=== PATIENT | female | born 1930 | race Caucasian/White ===

== ENCOUNTER 2018-12-25 13:22 | Inpatient (IN) | payer MEDICAID ==
[~2018-12-25] VITALS: Ht 132.1 cm; Wt 47.6 kg
[2018-12-25 13:37] VITALS: BP 143/66
--- NOTE | 2018-12-25 13:46 | NUR ---
88/F BIB FAMILY C/O BACK PAIN 10 X 4 DAYS, NO TRAUMA OR INJURY .AAOX4.PATIENT POSITIONED FOR COMFORT; HOB ELEVATED; BEDRAILS UP X1; BED DOWN. ER MD MADE AWARE OF PT STATUS.
--- NOTE | 2018-12-25 13:46 | NUR ---
88/F BIB FAMILY C/O LOWER BACK PAIN 06/11 WITH SOB X 4 DAYS, NO TRAUMA OR INJURY .AAOX4.PATIENT POSITIONED FOR COMFORT; HOB ELEVATED; BEDRAILS UP X1; BED DOWN. ER MD MADE AWARE OF PT STATUS.
--- NOTE | 2018-12-25 14:38 | NUR ---
X RAY AT BEDSIDE.
--- NOTE | 2018-12-25 14:43 | NUR ---
PT AMB WITH CANE & FAMILY TO REST ROOM.
[2018-12-25 15:18] LABS: BASOPHILS % (AUTO) 0.5 % (0.0-2.0); EOSINOPHILS # (AUTO) 0.3 K/uL (0-0.4); EOSINOPHILS % (AUTO) 3.4 % (0.0-4.0); HEMATOCRIT 38.8 % (36-48); HEMOGLOBIN 13.1 g/dL (12.0-16.0); LYMPHOCYTES # (AUTO) 1.9 K/uL (2.5-16.5); LYMPHOCYTES % (AUTO) 24.2 % (20.5-51.1); MEAN CORPUSCULAR HEMOGLOBIN 32 pg (27-31); MEAN CORPUSCULAR HGB CONC 34 g/dL (33-37); MEAN CORPUSCULAR VOLUME 94.4 fL (80-94); MONOCYTES # (AUTO) 0.7 K/uL (0.8-1.0); MONOCYTES % (AUTO) 8.2 % (1.7-9.3); NEUTROPHILS # (AUTO) 5.1 K/uL (1.8-7.7); NEUTROPHILS % (AUTO) 63.7 % (42.2-75.2); PLATELET COUNT (AUTO) 139 K/uL (140-450); RED BLOOD CELL COUNT(AUTO) 4.11 MIL/uL (4.20-5.40); RED CELL DISTRIBUTION WIDTH 13.5 % (11.6-13.7)
[2018-12-25 15:24] LABS: APPEARANCE,URINE CLEAR (CLEAR); BILIRUBIN,URINE NEGATIVE (NEGATIVE); BLOOD, URINE 1+ (NEGATIVE); COLOR,URINE YELLOW (YELLOW); LEUKOCYTE ESTERASE ,URINE TRACE (NEGATIVE); NITRITE, URINE NEGATIVE (NEGATIVE); UGLUCOSE NEGATIVE (NEGATIVE)
[2018-12-25 15:29] LABS: ANION GAP 13.7 (8-16); CARBON DIOXIDE 24.3 mmol/L (21-32); CHLORIDE 106 mmol/L (98-107); CREATININE 0.7 mg/dL (0.6-1.3); GLUCOSE 89 mg/dL (74-106); SODIUM SERUM 140 mmol/L (136-145); UREA NITROGEN, BLOOD 14 mg/dL (7-18)
[2018-12-25 15:35] LABS: ALBUMIN 3.6 g/dL (3.4-5.0); ASPARTATE AMINOTRANSFERASE 21 U/L (15-37); TOTAL BILIRUBIN 0.6 mg/dL (0.0-1.0)
[2018-12-25 15:37] LABS: RBC,URINE 0-5 /HPF (0-5); WBC,URINE 0-5 /HPF (0-5)
[2018-12-25] MEDS ORDERED: ONDANSETRON 4 MG/2 ML VIAL IM/IVP PRN (16:40)
[2018-12-25] MEDS ORDERED: MORPHINE SULFATE 2 MG/ML SYR IVP PRN (16:40)
[2018-12-25] MEDS ORDERED: DOCUSATE SODIUM 100 MG GELCAP PO PRN (16:40)
[2018-12-25 16:48] LABS: AMYLASE 38 U/L (25-115); LIPASE 121 U/L (73-393)
[2018-12-25] MEDS ORDERED: MEDICATION REC. PHARMACY CONS. 1 EA MISC MC PRN (16:50)
[2018-12-25] MEDS ORDERED: MELATONIN 3 MG TAB PO PRN (16:50)
[2018-12-25 17:09] LABS: PROTHROMBIN TIME 10.3 secs (10.8-13.4)
--- NOTE | 2018-12-25 17:11 | NUR ---
Patient will be admitted to care of [facility]. Admited to MS 121B. Will go to room. Belongings list completed. Report to XANDER LEE.
[2018-12-25 17:14] LABS: CHOL/HDL RATIO 3.2 (1-4.5); MAGNESIUM 2.2 mg/dL (1.8-2.4); PHOSPHORUS 3.3 mg/dL (2.5-4.9); THYROID STIMULATING HORMONE 4.21 uIU/mL (0.34-3.74)
[2018-12-25 17:15] VITALS: BP 131/69
--- NOTE | 2018-12-25 17:15 | NUR ---
RECEIVED REPORT FROM ED RN. PT IN STABLE CONDITION. AMBULATORY WITH SOME GEN WEAKNESS. USES CANE. SKIN INTACT. LUNGS CTA. NO C/O SOB OR PAIN NOW WHEN NOT MOVING. EXPLAINED POC. DAUGHTER AT BEDSIDE TO TRANSLATE-PT PREFERENCE. ALL SAFETY PRECAUTIONS IN PLACE, WILL CONTINUE TO MONITOR.
[2018-12-25] MEDS: NACL 0.9% 1,000 ML IV SCH (17:24)
[2018-12-25] MEDS ORDERED: ALBUTEROL SULFATE/IPRATROPIU 3 ML SOL IH PRN (17:40)
[2018-12-25] MEDS ORDERED: MECLIZINE 25 MG TAB PO PRN (17:55)
[2018-12-25] MEDS ORDERED: LACTOBACILLUS RHAMNOSUS GG 1 EACH CAP PO SCH (18:00)
[2018-12-25] MEDS ORDERED: LISINOPRIL 5 MG TAB PO SCH (18:00)
[2018-12-25] MEDS ORDERED: MENTHOL/METHYL 10%-15% 114 GM TUBE TP PRN (18:00)
--- NOTE | 2018-12-25 18:45 | NUR ---
ASKED HOUSE SUP TO BRING K PAD AND SCD.
[2018-12-25] MEDS: ALBUTEROL SULFATE/IPRATROPIU 3 ML SOL IH SCH (19:08)
--- NOTE | 2018-12-25 19:10 | NUR ---
ENDORSED POC TO MOVERS RN. PT IN STABLE CONDITION.
--- NOTE | 2018-12-25 19:15 | NUR ---
RECEIVED PT ON BED, AAOX4, [place]ER SPEAKING, VITAL SIGNS STABLE, COMPLAINING OF BACK PAIN, WILL MEDICATE PRN, NO SOB NOTED, IVF INFUSING WELL, SAFETY MEASURES IN PLACE, CALL LIGHT WITHIN REACH.
[2018-12-25 20:00] VITALS: BP_SYST 131; BP_SYST 134; BP_DIAS 56; BP_DIAS 58
[2018-12-25] MEDS: ACETAMINOPHEN 325 MG TAB PO PRN (20:02)
--- NOTE | 2018-12-25 21:10 | NUR ---
PT VOIDED VOIDED FREELY PER BEDPAN, PT CAN REPOSITIONED SELF, ALL NEEDS ATTENDED.
[2018-12-26] VITALS: BP 116/48
--- NOTE | 2018-12-26 | NUR ---
PT SLEEPING, EASILY AROUSABLE, VITAL SIGNS STABLE, DENIES ANY PAIN, WITH HEATING PAD TO BACK, IVF INFUSING WELL, CONTINUE TO MONITOR CLOSELY.
--- NOTE | 2018-12-26 03:00 | NUR ---
PT SLEEPING, NO SIGNS OF DISTRESS, IVF INFUSING WELL, MONITORED CLOSELY.
--- NOTE | 2018-12-26 05:20 | NUR ---
PT SLEEPING, EASILY AROUSABLE, DENIES ANY PAIN, SCD APPLIED TO BLE, IVF INFUSING WELL, MONITORED CLOSELY, SIDE RAILS UP X2 AND BED ALARM ON.
[2018-12-26 06:37] LABS: ANION GAP 11.2 (8-16); CARBON DIOXIDE 26.8 mmol/L (21-32); CHLORIDE 110 mmol/L (98-107); CREATININE 0.8 mg/dL (0.6-1.3); GLUCOSE 80 mg/dL (74-106); SODIUM SERUM 144 mmol/L (136-145); UREA NITROGEN, BLOOD 13 mg/dL (7-18)
[2018-12-26 06:38] LABS: CHOL/HDL RATIO 2.8 (1-4.5)
--- NOTE | 2018-12-26 07:08 | NUR ---
PT AWAKE, NO SIGNS OF PAIN, REPORT GIVEN TO JESUS SANDY FOR CONTINUITY OF CARE.
--- NOTE | 2018-12-26 07:10 | NUR ---
RECEIVED BEDSIDE REPORT FROM LEAN SIX SIGMA BLACK BELT NURSE FOR CONTINUITY OF CARE. PATIENT IS AOX4, SPEAKING SLOVENIAN ONLY. ABLE TO MAKE NEEDS KNOWN AND FOLLOWS COMMAND. DENIES PAIN AND SOB. RESPIRATION EVEN AND UNLABORED. ON RA. NO SIGNS OF DISTRESS NOTED. IV ON LAC 20G, PATENT AND INTACT, INFUSING PER MD ORDER. SKIN INTACT AND CLEAN. PATIENT IS ON FALL RISK, FALL RISK PROTOCOL INITIALED. DISCUSSED PLAN OF CARE WITH PATIENT AND PATIENT VERBALIZED "SI". INSTRUCTED PATIENT TO USE THE CALL LIGHT FOR ANY ASSISTANCE AND PATIENT WAS AWARE. BED IN LOW POSITION AND CALL LIGHT WITHIN REACH.
[2018-12-26] MEDS: ALBUTEROL SULFATE/IPRATROPIU 3 ML SOL IH SCH ×3 (07:15→21:11)
[2018-12-26 07:56] LABS: BASOPHILS # (AUTO) 0.1 K/uL (0.00-0.22); BASOPHILS % (AUTO) 1.1 % (0.0-2.0); EOSINOPHILS # (AUTO) 0.4 K/uL (0-0.4); EOSINOPHILS % (AUTO) 7.5 % (0.0-4.0); HEMATOCRIT 36.5 % (36-48); HEMOGLOBIN 12.2 g/dL (12.0-16.0); LYMPHOCYTES # (AUTO) 1.6 K/uL (2.5-16.5); LYMPHOCYTES % (AUTO) 33.8 % (20.5-51.1); MEAN CORPUSCULAR HEMOGLOBIN 32 pg (27-31); MEAN CORPUSCULAR HGB CONC 33 g/dL (33-37); MEAN CORPUSCULAR VOLUME 94.8 fL (80-94); MONOCYTES # (AUTO) 0.5 K/uL (0.8-1.0); MONOCYTES % (AUTO) 10.2 % (1.7-9.3); NEUTROPHILS # (AUTO) 2.3 K/uL (1.8-7.7); NEUTROPHILS % (AUTO) 47.4 % (42.2-75.2); PLATELET COUNT (AUTO) 126 K/uL (140-450); RED BLOOD CELL COUNT(AUTO) 3.85 MIL/uL (4.20-5.40); RED CELL DISTRIBUTION WIDTH 13.6 % (11.6-13.7); WHITE BLOOD COUNT (AUTO) 4.9 K/uL (4.8-10.8)
[2018-12-26 08:00] VITALS: BP 128/58
--- NOTE | 2018-12-26 08:29 | NUR ---
PATIENT HAS BEEN SCREENED AND CATEGORIZED MODERATE NUTRITION RISK. PATIENT WILL BE SEEN WITHIN 3-5 DAYS OF ADMISSION. 12/28/18[address]
[2018-12-26] MEDS ORDERED: FUROSEMIDE 20 MG/2 ML VIAL IVP SCH (08:40)
[2018-12-26] MEDS ORDERED: ASPIRIN 81 MG TAB.CHEW PO SCH (09:00)
[2018-12-26] MEDS: BACLOFEN 10 MG TAB PO SCH ×3 (09:20→17:20)
[2018-12-26] MEDS: LACTOBACILLUS RHAMNOSUS GG 1 EACH CAP PO SCH (09:21)
[2018-12-26] MEDS: LISINOPRIL 5 MG TAB PO SCH (09:21)
[2018-12-26] MEDS: LORATADINE 10 MG TAB PO SCH (09:21)
--- NOTE | 2018-12-26 09:26 | NUR ---
ADMINISTERED MEDS PER MD ORDER, PATIENT TOLERATED WELL. HOLD HEPARIN DUE TO LOW PLATELET LAB 126 FROM AM LAB. SAFETY MEASURES IN PLACE. HEATING PAD IN PLACE. SEQUENTIAL COMPRESSION SOCKS IN PLACE. BED IN LOW POSITION AND CALL LIGHT WITHIN REACH. INSTRUCTED PATIENT TO USE CALL LIGHT FOR ANY ASSISTANCE AND PATIENT WAS AWARE.
--- NOTE | 2018-12-26 09:29 | NUR ---
PHYSICAL THERAPIST SHAGUFTA IS WITH PATIENT AT THIS TIME. NO SIGNS OF DISTRESS NOTED.
[2018-12-26] MEDS: HYDROcodone/APAP 5/325 MG 1 TAB TAB PO PRN ×2 (11:24→20:16)
--- NOTE | 2018-12-26 11:25 | NUR ---
PATIENT C/O OF BACK PAIN 02/09. ADMINISTERED PRN PAIN MED, PATIENT TOLERATED WELL. HEATING PAD APPLIED ON HER BACK. SAFETY MEASURES IN PLACE.
[2018-12-26] MEDS ORDERED: CALCIUM CARB/VIT-D 500 MG/200 IU 1 TAB PO SCH (11:34)
[2018-12-26] MEDS ORDERED: DOCUSATE SODIUM 100 MG GELCAP PO SCH (11:38)
--- NOTE | 2018-12-26 11:46 | NUR ---
LOAN DOCUMENTS CLOSER JORDEN IS AT BEDSIDE AND DOING ECHOCARDIOGRAM AT THIS TIME. NO SIGNS OF DISTRESS NOTED.
--- NOTE | 2018-12-26 13:02 | NUR ---
PATIENT IS SITTING UP ON BED WATCHING TV AND EATING LUNCH. DENIES PAIN AND SOB. NO SIGNS OF DISTRESS NOTED. SAFETY MEASURES IN PLACE.
--- NOTE | 2018-12-26 15:01 | NUR ---
PATIENT IS RESTING ON BED AND TALKING TO SON MARIZOL BLACK AT BEDSIDE. NO SIGNS OF DISTRESS NOTED. SAFETY MEASURES IN PLACE.
[2018-12-26 16:00] VITALS: BP 105/54
--- NOTE | 2018-12-26 16:11 | NUR ---
S.T. BEDSIDE SWALLOW EVAL COMPLETED See report. Pt presents w/ adequate oropharyngeal swallow function. No overt s/s aspiration observed across textures. Recommend: 1) Continue regular diet, thin liquids. P.O. meds as tolerated. 2) Defer to medicine team re: dietary restrictions. No further S.T. tx indicated at this time. [facility]. D/w pt, family member at bedside and JESUS Hernandez results/recommendations. Time [id number]
[2018-12-26] MEDS: NACL 0.9% 1,000 ML IV SCH (16:37)
[2018-12-26] MEDS ORDERED: hydrOXYzine HCL 10 MG TAB PO PRN (16:40)
[2018-12-26] MEDS ORDERED: diphenhydrAMINE 2% 30 GM TUBE TP PRN (16:45)
--- NOTE | 2018-12-26 17:22 | NUR ---
PATIENT IS SITTING ON BED AND WATCHING TV. DENIES PAIN AND SOB. NO SIGNS OF DISTRESS NOTED. SAFETY MEASURES IN PLACE.
--- NOTE | 2018-12-26 19:28 | NUR ---
ENDORSED PATIENT AT BEDSIDE TO FURNACE UTILITY OPERATOR FOR CONTINUITY OF CARE. PATIENT IS IN A STABLE CONDITION.
--- NOTE | 2018-12-26 19:29 | NUR ---
RECEIVED PT ON BED, SLEEPING, EASILY AROUSABLE, AAOX4, KAZAKH SPEAKING, VITAL SIGNS STABLE, COMPLAINING OF BACK PAIN, WILL MEDICATE PRN, NO SOB NOTED, IVF INFUSING WELL, SAFETY MEASURES IN PLACE, SIDE RAILS UP X2 AND BED ALARM ON, CALL LIGHT WITHIN REACH.
--- NOTE | 2018-12-26 20:20 | NUR ---
MEDICATED FOR BACK PAIN PRN WITH NORCO, DUE ROCEPHIN IVPB ADMINISTERED, PLATELET LOW-126, PER DR ABDIAZIZ IRVING TO HOLD HEPARIN AT THIS TIME, MONITORED CLOSELY.
--- NOTE | 2018-12-26 20:55 | NUR ---
DR Tamera GARCIA HERE FOR CARDIAC CONSULT, SEEN AND TALKED TO PT.
--- NOTE | 2018-12-26 21:21 | NUR ---
RECEIVED PATIENT ON ROOM AIR, PULSE OX SAT 95%. SCHEDULED BREATHING TREATMENT ADMINISTERED. TOLERATED TX WELL. NO ADVERSE SIDE EFFECTS. NO RESPIRATORY DISTRESS NOTED AT THIS TIME. WILL CONTINUE TO MONITOR.
--- NOTE | 2018-12-26 23:55 | NUR ---
PT SLEEPING, NO SIGNS OF DISTRESS, BEDSIDE REPORT GIVEN TO RN BETH FOR CONTINUITY OF CARE.
[2018-12-27] VITALS: BP 110/58
--- NOTE | 2018-12-27 | NUR ---
RECEIVED REPORT FROM SENIA LEE. PATIENT CONDITION STABLE. RESPIRATION EVEN UNLABORED ON ROOM AIR. SKIN IS WARM AND DRY. IV PATENT AND INTACT. NO DISTRESS NOTED. WILL CONTINUE TO MONITOR.
--- NOTE | 2018-12-27 02:00 | NUR ---
CHECKED PATIENT. PATIENT SLEEPING RESPIRATION EVEN UNLABORED ON ROOM AIR. NO DISTRESS NOTED. WILL CONTINUE TO MONITOR
[2018-12-27] MEDS: NACL 0.9% 1,000 ML IV SCH (02:41)
--- NOTE | 2018-12-27 04:00 | NUR ---
HELP PATIENT AMBULATES TO THE BATHROOM. NO DISTRESS NOTED. WILL CONTINUE TO MONITOR
[2018-12-27] MEDS: ALBUTEROL SULFATE/IPRATROPIU 3 ML SOL IH SCH ×3 (06:45→19:40)
--- NOTE | 2018-12-27 07:25 | NUR ---
ENDORSED PATIENT TO DAY SHIFT NURSE. PATIENT CONDITION STABLE
--- NOTE | 2018-12-27 07:27 | NUR ---
ECEIVED BEDSIDE REPORT FROM FLATWORK FEEDER NURSE FOR CONTINUITY OF CARE. PATIENT IS AWAKE AND RESTING ON BED AT THIS TIME. PATIENT IS AOX4, SPEAKING SRI LANKAN ONLY. ABLE TO MAKE NEEDS KNOWN AND FOLLOWS COMMAND. DENIES PAIN AND SOB. RESPIRATION EVEN AND UNLABORED. ON RA. NO SIGNS OF DISTRESS NOTED. IV ON LAC 20G, PATENT AND INTACT, INFUSING PER MD ORDER. SKIN INTACT AND CLEAN. PATIENT IS ON FALL RISK, FALL RISK PROTOCOL INITIALED. DISCUSSED PLAN OF CARE WITH PATIENT AND PATIENT VERBALIZED OK. HEATING PAD IN PLACE. INSTRUCTED PATIENT TO USE THE CALL LIGHT FOR ANY ASSISTANCE AND PATIENT WAS AWARE. BED IN LOW POSITION AND CALL LIGHT WITHIN REACH. Addendum: 12/27/18 at 0850 by Anni Cantu RN RECEIVED
[2018-12-27 08:00] VITALS: BP 137/61
[2018-12-27 08:09] LABS: BASOPHILS % (AUTO) 0.7 % (0.0-2.0); EOSINOPHILS # (AUTO) 0.3 K/uL (0-0.4); EOSINOPHILS % (AUTO) 5.4 % (0.0-4.0); HEMATOCRIT 36.1 % (36-48); HEMOGLOBIN 12.9 g/dL (12.0-16.0); LYMPHOCYTES # (AUTO) 1.4 K/uL (2.5-16.5); LYMPHOCYTES % (AUTO) 24.4 % (20.5-51.1); MEAN CORPUSCULAR HEMOGLOBIN 36 pg (27-31); MEAN CORPUSCULAR HGB CONC 36 g/dL (33-37); MEAN CORPUSCULAR VOLUME 101.5 fL (80-94); MONOCYTES # (AUTO) 0.5 K/uL (0.8-1.0); MONOCYTES % (AUTO) 8.4 % (1.7-9.3); NEUTROPHILS # (AUTO) 3.4 K/uL (1.8-7.7); NEUTROPHILS % (AUTO) 61.1 % (42.2-75.2); PLATELET COUNT (AUTO) 120 K/uL (140-450); RED BLOOD CELL COUNT(AUTO) 3.56 MIL/uL (4.20-5.40); RED CELL DISTRIBUTION WIDTH 13.4 % (11.6-13.7); WHITE BLOOD COUNT (AUTO) 5.6 K/uL (4.8-10.8)
[2018-12-27 08:13] LABS: ANION GAP 11.3 (8-16); CHLORIDE 108 mmol/L (98-107); CREATININE 0.7 mg/dL (0.6-1.3); GLUCOSE 75 mg/dL (74-106); POTASSIUM 4.3 mmol/L (3.5-5.1); SODIUM SERUM 142 mmol/L (136-145); UREA NITROGEN, BLOOD 12 mg/dL (7-18)
[2018-12-27] MEDS ORDERED: CALCIUM CARB/VIT-D 500 MG/200 IU 1 TAB PO SCH (09:00)
[2018-12-27] MEDS: CALCIUM CARB/VIT-D 500 MG/200 IU 1 TAB PO SCH (09:02)
[2018-12-27] MEDS: LACTOBACILLUS RHAMNOSUS GG 1 EACH CAP PO SCH (09:02)
[2018-12-27] MEDS: LISINOPRIL 5 MG TAB PO SCH (09:02)
[2018-12-27] MEDS: BACLOFEN 10 MG TAB PO SCH ×3 (09:02→17:24)
[2018-12-27] MEDS: LORATADINE 10 MG TAB PO SCH (09:03)
[2018-12-27] MEDS: DOCUSATE SODIUM 100 MG GELCAP PO SCH (09:03)
--- NOTE | 2018-12-27 09:08 | NUR ---
ADMINISTERED MEDS PER MD ORDER, PATIENT TOLERATED WELL. HOLD HEPARIN DUE TO LOW PLT LAB VALUE 120 FROM AM LAB. PATIENT IS SITTING UP ON BED AND WATCHING TV. DENIES PAIN AND SOB. NO SIGNS OF DISTRESS NOTED. SAFETY MEASURES IN PLACE. INSTRUCTED PATIENT TO USE THE CALL LIGHT FOR ANY ASSISTANCE AND PATIENT WAS AWARE.
--- NOTE | 2018-12-27 11:05 | NUR ---
PATIENT IS TALKING TO SON MARIZOL IS AT BEDSIDE. NO SIGNS OF DISTRESS NOTED. INSTRUCTED PATIENT TO USE THE CALL LIGHT FOR ANY ASSISTANCE AND PATIENT WAS AWARE. SAFETY MEASURES IN PLACE.
--- NOTE | 2018-12-27 13:00 | NUR ---
CALLED [facility] FOR [facility] [phone] UNABLE TO LEFT MESSAGE.
--- NOTE | 2018-12-27 13:05 | NUR ---
PATIENT IS SITTING UP ON BED AND GETTING BREATHING TREATMENT. NO SIGNS OF DISTRESS NOTED. HEATING PAD IN PLACE. SAFETY MEASURES IN PLACE. BED IN LOW POSITION AND CALL LIGHT WITHIN REACH.
[2018-12-27] MEDS: ACETAMINOPHEN 325 MG TAB PO PRN (13:17)
--- NOTE | 2018-12-27 13:19 | NUR ---
COMPLAINED OF BACK PAIN 3/, MEDICATED WITH PRN PAIN MED. PATIENT IS RESTING ON BED AND WATCHING TV AT THIS TIME. HEATING PAD IN PLACE. INSTRUCTED PATIENT TO USE THE CALL LIGHT FOR ANY ASSISTANCE AND PATIENT WAS AWARE. BED IN LOW POSITION AND CALL LIGHT WITHIN REACH.
--- NOTE | 2018-12-27 15:00 | NUR ---
CALLED [facility] [phone] SPOKE WITH KATHERINE FOR SNF PLACEMENT ,PER KATHERINE WILL CHECK THE CONTRACTED SNF AROUND HIS HOME ADDRESS AND WILL CALL BACK
--- NOTE | 2018-12-27 15:10 | NUR ---
PATIENT IS TALKING TO SON MARIZOL AT BEDSIDE. NO SIGNS OF DISTRESS NOTED. SAFETY MEASURES IN PLACE.
--- NOTE | 2018-12-27 15:45 | NUR ---
PATIENT'S DAUGHTER WILLARD IS AT BEDSIDE. PATIENT IS TALKING TO WILLARD. NO SIGNS OF DISTRESS NOTED.
[2018-12-27 16:00] VITALS: BP 116/54
--- NOTE | 2018-12-27 17:26 | NUR ---
ADMINISTERED MED PER MD ORDER, PATIENT TOLERATED WELL. NO SIGNS OF DISTRESS NOTED. INSTRUCTED PATIENT TO USE THE CALL LIGHT FOR ANY ASSISTANCE AND PATIENT WAS AWARE. SAFETY MEASURES IN PLACE.
--- NOTE | 2018-12-27 17:41 | NUR ---
I RECEIVED A CALL FROM BRIAN FROM [place] [facility] REGARDING SNF PLACEMENT PER BRIAN WE CAN TRY [facility] [phone] ,[facility] [phone] AND [facility] [phone] WILL CALL AND FAX ALL THE PAPER
--- NOTE | 2018-12-27 17:41 | NUR ---
FAXED ALL PAPER WORK TO [facility] [phone], [facility] [phone]
--- NOTE | 2018-12-27 18:53 | NUR ---
DR GARCIA IS ASSESSING PATIENT AT THIS TIME. NO SIGNS OF DISTRESS NOTED. SAFETY MEASURES IN PLACE.
--- NOTE | 2018-12-27 19:14 | NUR ---
ENDORSED PATIENT AT BEDSIDE TO POLICE LIAISON NURSE FOR CONTINUITY OF CARE. PATIENT IS IN STABLE CONDITION.
--- NOTE | 2018-12-27 19:15 | NUR ---
REPORT RECEIVED FROM AM NURSE AT BEDSIDE. PT IN STABLE CONDITION. AAOX2. INTRODUCED SELF TO PT. BOARD UPDATED. NO COMPLAINTS OF PAIN. NO SOB. AFEBRILE. PT PRIMARILY TUNISIAN SPEAKING. IV SITE L AC 20G RUNNING NS@20ML/HR PATENT AND INTACT. SKIN WARM, DRY, AND INTACT WITH NO OPEN WOUNDS. PT HAS ORDERS FOR D/C BUT AWAITING SNF PLACEMENT FOR PHYSICAL THERAPY. PT GAIT IMPAIRED. BED LOCKED IN LOW POSITION. CALL JIMENEZ WITHIN REACH. SAFETY PRECAUTIONS IN PLACE. ALL NEEDS MET AT THIS TIME.
--- NOTE | 2018-12-27 19:45 | NUR ---
PT CHUCKS CHANGED.
--- NOTE | 2018-12-27 20:38 | NUR ---
FORREST JUNG AND RUNNING. HEPARIN HELD DUE TO DECREASED PLT COUNT. WILL CONTINUE TO MONITOR.
--- NOTE | 2018-12-27 22:10 | NUR ---
PT SLEEPING COMFORTABLY RIGHT LATERAL. NO S/S OF DISTRESS NOTED. WILL CONTINUE TO MONITOR.
--- NOTE | 2018-12-27 23:50 | NUR ---
PT SLEEPING COMFORTABLY IN BED RIGHT LATERAL. V/S STABLE. NO COMPLAINTS OF PAIN. NO SOB. AFEBRILE. WILL CONTINUE TO MONITOR.
[2018-12-28] VITALS: BP 95/54
--- NOTE | 2018-12-28 01:30 | NUR ---
PT SLEEPING COMFORTABLY IN BED SUPINE. NO S/S OF DISTRESS NOTED. CHEST EXPANSION VISIBLE. WILL CONTINUE TO MONITOR.
--- NOTE | 2018-12-28 03:30 | NUR ---
PT SLEEPING COMFORTABLY IN BED. NO S/S OF DISTRESS NOTED. RESPIRATIONS ARE VISIBLE. WILL CONTINUE TO MONITOR.
--- NOTE | 2018-12-28 05:35 | NUR ---
PT SLEEPING COMFORTABLY. NO S/S OF DISTRESS NOTED. WILL CONTINUE TO MONITOR.
--- NOTE | 2018-12-28 07:24 | NUR ---
RECEIVED REPORT FROM ECHOCARDIOGRAPH TECHNICIAN RN AT BEDSIDE. PATIENT CONDITION STABLE. RESPIRATION EVEN UNLABORED ON ROOM AIR. SKIN IS WARM AND DRY. IV PATENT AND INTACT. NO DISTRESS NOTED. WILL CONTINUE TO MONITOR.
--- NOTE | 2018-12-28 07:30 | NUR ---
REPORT GIVEN TO AM NURSE AT BEDSIDE. PT IN STABLE CONDITION.
[2018-12-28 08:00] VITALS: BP_SYST 133; BP_SYST 138; BP_DIAS 65; BP_DIAS 71
[2018-12-28] MEDS: ALBUTEROL SULFATE/IPRATROPIU 3 ML SOL IH SCH ×3 (08:02→19:55)
[2018-12-28] MEDS: DOCUSATE SODIUM 100 MG GELCAP PO SCH (09:56)
[2018-12-28] MEDS: CALCIUM CARB/VIT-D 500 MG/200 IU 1 TAB PO SCH (09:56)
[2018-12-28] MEDS: LACTOBACILLUS RHAMNOSUS GG 1 EACH CAP PO SCH (09:57)
[2018-12-28] MEDS: BACLOFEN 10 MG TAB PO SCH ×3 (09:57→20:33)
[2018-12-28] MEDS: LISINOPRIL 5 MG TAB PO SCH (09:57)
[2018-12-28] MEDS: LORATADINE 10 MG TAB PO SCH (09:58)
--- NOTE | 2018-12-28 13:18 | NUR ---
CALLED [facility] [phone] PER DECEMBER, ADMISSION WILL REVIEW THE REFERRAL ON SATURDAY, CAN'T ACCEPT TODAY. [facility] [phone] PER JAVI, THEY ARE UNABLE TO ACCEPT THIS PATIENT.
[2018-12-28 16:00] VITALS: BP_SYST 111; BP_SYST 114; BP_DIAS 49; BP_DIAS 51
[2018-12-28] MEDS: HYDROcodone/APAP 5/325 MG 1 TAB TAB PO PRN (16:03)
[2018-12-28] MEDS: NACL 0.9% 1,000 ML IV SCH (16:37)
--- NOTE | 2018-12-28 19:29 | NUR ---
ENDORSED PT TO BOTTLE LINE WORKER FOR CONTINUITY OF CARE. PT IN TABLE CONDITION AT THIS TIME.
--- NOTE | 2018-12-28 19:30 | NUR ---
REPORT RECEIVED FROM AM NURSE AT BEDSIDE. PT IN STABLE CONDITION. AAOX3-4. INTRODUCED SELF TO PT. BOARD UPDATED. NO COMPLAINTS OF PAIN. NO SOB. AFEBRILE. IV SITE L AC 20G RUNNING NS@10ML/HR PATENT AND INTACT. SKIN WARM, DRY, AND INTACT WITH NO OPEN WOUNDS. BED LOCKED IN LOW POSITION. CALL JIMENEZ WITHIN REACH. SAFETY PRECAUTION IN PLACE. ALL NEEDS MET AT THIS TIME.
--- NOTE | 2018-12-28 20:33 | NUR ---
BACLOFEN GIVEN PO. PT TOLERATED WELL. HEPARIN GIVEN SUBQ.
--- NOTE | 2018-12-28 22:20 | NUR ---
PT SLEEPING COMFORTABLY IN BED. NO S/S OF DISTRESS NOTED. WILL CONTINUE TO MONITOR.
[2018-12-29] VITALS: BP 111/59
--- NOTE | 2018-12-29 00:15 | NUR ---
PT SLEEPING COMFORTABLY IN BED. NO S/S OF DISTRESS NOTED. WILL CONTINUE TO MONITOR.
--- NOTE | 2018-12-29 02:10 | NUR ---
PT SLEEPING COMFORTABLY. NO S/S OF DISTRESS NOTED. NO COMPLAINTS OF PAIN. NO SOB. AFEBRILE. WILL CONTINUE TO MONITOR.
--- NOTE | 2018-12-29 03:25 | NUR ---
PT SLEEPING COMFORTABLY IN BED. NO S/S OF DISTRESS NOTED. RESPIRATIONS VISIBLE. WILL CONTINUE TO MONITOR.
--- NOTE | 2018-12-29 05:03 | NUR ---
PT SLEEPING COMFORTABLY IN BED. NO S/S OF DISTRESS NOTED. BREATHING EVEN, UNLABORED, AND WNL. WILL CONTINUE TO MONITOR.
--- NOTE | 2018-12-29 07:10 | NUR ---
REPORT GIVEN TO AM NURSE AT BEDSIDE. PT IN STABLE CONDITION.
--- NOTE | 2018-12-29 07:30 | NUR ---
RECEIVED PT REPORT FROM VEST BUSHELER NURSE AT BEDSIDE, PT IS AWAKE IN BED, NO S/S OF ACUTE DISTRESS OR SOB, NO C/O PAIN. PT IS ON ROOM AIR, SKIN INTACT. IV SITE ON THE LAC 20 G, INFUSING NS 10 ML/HR. FALL PRECAUTIONS IN PLACE, CALL LIGHT IS WITHIN REACH. WILL CONTINUE TO MONITOR.
[2018-12-29 08:00] VITALS: BP 136/71
[2018-12-29] MEDS: ALBUTEROL SULFATE/IPRATROPIU 3 ML SOL IH SCH ×3 (08:00→19:20)
[2018-12-29] MEDS ORDERED: CALCIUM CARB 600 MG TAB PO SCH (09:00)
--- NOTE | 2018-12-29 11:31 | NUR ---
Digitizer Note: I faxed inquiries to both [facility] and [facility] (snfs).
[2018-12-29] MEDS: LISINOPRIL 5 MG TAB PO SCH (11:38)
[2018-12-29] MEDS: LORATADINE 10 MG TAB PO SCH (11:38)
[2018-12-29] MEDS: DOCUSATE SODIUM 100 MG GELCAP PO SCH (11:38)
[2018-12-29] MEDS: BACLOFEN 10 MG TAB PO SCH (11:39)
--- NOTE | 2018-12-29 11:47 | NUR ---
SCHEDULED AM MEDS ADMINISTERED (CRUSHED WITH APPLE SAUCE), PT TOLERATED WELL. HELD THE SUBQ HEPARIN DUE TO LOW PLATELETS (120)
[2018-12-29] MEDS ORDERED: MECL-272 PO (12:08)
[2018-12-29] MEDS ORDERED: LISI-424 PO (12:08)
--- NOTE | 2018-12-29 12:33 | NUR ---
Credit Collection Specialist Note: Per Jordi from [facility] , they do not have any beds available at this time. Per Lotus from [facility] , they do not have any beds available at this time
--- NOTE | 2018-12-29 13:54 | NUR ---
Caster Investment Casting Note: Per Supervisor Microwave Lily ext [phone], she spoke with Veronique at [facility] and Veronique told her that at this time there is no assigned lining caser for this patient. Lily requested for assigned lining caser from [facility] to contact me.
--- NOTE | 2018-12-29 14:57 | NUR ---
Manager Winter Note: I received a call from Senior Office Support Assistant Sosa Felicitas from [facility] ext [phone]. Per Felicitas, she will email me a list of their contracted snfs. She requested I fax her physical therapy notes and MD's snf order, fax number . I faxed info to Felicitas. Per Felicitas, if home health is an option [facility] , fax number can be contacted. For transportation to snf �Call the Car� [phone], can be contacted, no auth needed.
--- NOTE | 2018-12-29 15:29 | NUR ---
Driller Helper Note: I faxed inquiries to [facility], [facility], [facility], and [facility].
[2018-12-29 16:00] VITALS: BP 132/60
--- NOTE | 2018-12-29 16:01 | NUR ---
Saddle Stitch Operator Note: Per Debby from [facility] , they are not accepting [facility] patients at this time, unable to accept patient. Per lamp tester and inspector (D.O.N) Chiara from [facility] , they are not accepting [facility] patients at this time. She stated [facility] has not paid them for their services. Per Ursula from [facility] , their lamp tester and inspector will review inquiry and Ursula will call me back. Per Ya from [facility] , they don�t have any beds available.
[2018-12-29] MEDS: NACL 0.9% 1,000 ML IV SCH (16:37)
--- NOTE | 2018-12-29 16:44 | NUR ---
Casino Controller Note: I faxed inquiry to [facility] , fax number Addendum: 12/29/18 at 1726 by Jodee CARRILLO I called and spoke with Ana Maria at [facility], cancelled home health referral.
--- NOTE | 2018-12-29 17:18 | NUR ---
Fruit I Farmworker Note: I received a call from Museum Archivist Kirill at [facility] , he stated their financial issue with [facility] has been resolved and they are able to accept patient after all. He told me he already spoke with their fire tender (D.O.N) Chiara regarding this. Per Elissa from [facility], patient may go to room 10B today, accepting physician is . For transportation to snf �Call the Car� [phone], can be contacted, no auth needed, Charge Nurse Nataly made aware of above information.
--- NOTE | 2018-12-29 17:28 | NUR ---
Ladle Repairman Note: I received a call from Idea Worker Felicitas from [facility] ext [phone], I informed her [facility] , she stated she was going to provide [facility] with snf auth tomorrow morning.
[2018-12-29] MEDS ORDERED: ATA10 PO (18:15)
[2018-12-29] MEDS ORDERED: LORA10TA19 PO (18:15)
[2018-12-29] MEDS ORDERED: DOCU-299 PO (18:15)
[2018-12-29] MEDS ORDERED: CALC600T7 PO (18:15)
[2018-12-29] MEDS ORDERED: ACET-1182 PO (18:15)
[2018-12-29] MEDS ORDERED: BENC TP (18:15)
[2018-12-29] MEDS ORDERED: MELA3TAB PO (18:15)
--- NOTE | 2018-12-29 18:30 | NUR ---
CALLED TEL#: [phone] AND SPOKE WITH KIRBY AND SHE STATED THAT PT'S LAST NAME ON THEIR END ID NOT ALBERTS, IT IS DICKERSON. KIRBY STATED SHE CANNOT GIVE ME AN ETA OF PT'S TRANSPORTATION IF WE DO NOT VERIFY IT WITH SS/CM. LISBET JIMENEZ SUP NOTIFIED. CALLED PT'S NEXT OF KIN, NO ANSWER.
--- NOTE | 2018-12-29 18:30 | NUR ---
PT REPORT GIVEN TO JESUS BULLARD, AT [facility], FOR PT'S TRANSFER TODAY.
--- NOTE | 2018-12-29 19:00 | NUR ---
CALLED TEL#: [phone] AND SPOKE WITH AMME, TELECOMMUNICATION SYSTEMS DESIGNER TIME FOR PT VIA [facility] IS AT 2030 TONIGHT. RAHUL NURSE ASSIGNED NOTIFIED.
--- NOTE | 2018-12-29 19:30 | NUR ---
PT ENDORSED TO ROOFER ASSISTANT NURSE IN STABLE CONDITION.
[2018-12-29] MEDS ORDERED: PNEUMOCOCCAL VACCINE 23 MCG/0.5 ML VIAL IMVAC SCH (20:05)
[2018-12-29] MEDS ORDERED: INFLUENZA VIRUS VACCINE QUAD 0.5 ML SYR IMVAC PRN (20:05)
== END 2018-12-29 20:15 | DRG 463 ==
LOC: MED 13:22 → MTU 16:37
PROVIDERS: ADMIT General Practice; ATTEND General Practice
DX: N39.0 Urinary tract infection, site not specified (principal); I50.43 Acute on chronic combined systolic (congestive) and diastolic (congestive) heart failure; E86.0 Dehydration; I27.21 Secondary pulmonary arterial hypertension; E83.51 Hypocalcemia; I11.0 Hypertensive heart disease with heart failure; H81.10 Benign paroxysmal vertigo, unspecified ear; J61 Pneumoconiosis due to asbestos and other mineral fibers; M48.56XD Collapsed vertebra, not elsewhere classified, lumbar region, subsequent encounter for fracture with routine healing; K43.9 Ventral hernia without obstruction or gangrene; I25.10 Atherosclerotic heart disease of native coronary artery without angina pectoris; M48.061 Spinal stenosis, lumbar region without neurogenic claudication; M43.17 Spondylolisthesis, lumbosacral region; Z98.42 Cataract extraction status, left eye; Z98.41 Cataract extraction status, right eye; E02 Subclinical iodine-deficiency hypothyroidism
CPT/HCPCS: 36415; 71045; 80048; 80053; 81001; 82150; 83036; 83690; 83735; 83880; 84100; 84443; 84484; 85025; 85610; 85730; 87081; 87086; 92610; 93005; 93970; 94640; 97110; 97116; 97161-GP; 97530; 99285; J0696; J1644; J1940; J7030; J7060; J7620; Q0092

== ENCOUNTER 2019-03-27 17:06 | Emergency (ER) | payer MEDICAID ==
[~2019-03-27] VITALS: Ht 127 cm; Wt 42.2 kg
[~2019-03-27 17:06] MED LIST: ACET-1182 PO; ATA10 PO; BENC TP; CALC600T7 PO; DOCU-299 PO; LISI-424 PO; LORA10TA19 PO; MECL-272 PO; MELA3TAB PO
[2019-03-27 17:12] VITALS: BP 138/77
--- NOTE | 2019-03-27 17:22 | NUR ---
PT AMBULATED WITH ASSISTANCE TO ER BED 06
--- NOTE | 2019-03-27 17:35 | NUR ---
PT BIB BY SON WITH C/O DIFFICUL;TY IN BREATHING SINCE THIS AM. PT HAS EVEN, NON-LABORED BREATHING. HAS CLEAR LUNGS SOUND BILATERALLY. O2 SAT 97$% ON RA. PT KEPT ON O2 2 L VIA NC FOR COMFORT. DENIES ANY MEDICAL HX, NOT ALLAERGIC TO ANY MEDS. DAUGHTER AT THE BEDSIDE. PT APPAERS WEAK. PT AAOX4 , ABLE TO COMMUNICTAE HER NEEDS. HAS CANE FOR WALKING. SIDES RAILS UP X2, BED AT LOWER POSITION. ER MD TO SEE THE PT. JOHNSON CONTINUE TO MONITOR PT.
--- NOTE | 2019-03-27 17:41 | NUR ---
CHECKED ON THE PT. PRIMARILY CAMBODIAN SPEAKING. CONNECTED TO THE MONITOR. VS STABLE. PT AAOX4. C/O ONEIL 10/12. HX OF BS. BS 78 AT THIS TIME GAVE SOME ORANGE JUICE. PT ON RESTING IN BED.PER SON, DAUGHTER TO COME, KNOWS MORE HX OF THE PT. CALLED DAUGHTER , STATES IS ON THE WAY.
--- NOTE | 2019-03-27 19:05 | NUR ---
COMMUNITY HEALTH NURSE UNABLE TO OBTAIN ARTERIAL BLOOD GAS. PER DR PARKER, OK TO D/C AND DISREGARD ABG TEST. BOTH NURSE AND DR COOMBS UNABLE TO CANCEL ORDER AT THIS TIME.
--- NOTE | 2019-03-27 19:19 | NUR ---
BEDSIDE GIVEN TO JESUS TAMAYO. PT IN SATBLE CONDITION.
--- NOTE | 2019-03-27 19:20 | NUR ---
RECEIVED REPORT FROM JESUS AQUINO, PT IN STABLE CONDITION AT THIS TIME, WILL CONTINUE TO MONITOR CLOSELY.
[2019-03-27 19:25] LABS: BASOPHILS % (AUTO) 0.7 % (0.0-2.0); EOSINOPHILS # (AUTO) 0.5 K/uL (0-0.4); EOSINOPHILS % (AUTO) 8.3 % (0.0-4.0); HEMATOCRIT 38.4 % (36-48); HEMOGLOBIN 12.8 g/dL (12.0-16.0); LYMPHOCYTES # (AUTO) 2.2 K/uL (2.5-16.5); LYMPHOCYTES % (AUTO) 36.2 % (20.5-51.1); MEAN CORPUSCULAR HEMOGLOBIN 32 pg (27-31); MEAN CORPUSCULAR HGB CONC 33 g/dL (33-37); MEAN CORPUSCULAR VOLUME 94.4 fL (80-94); MONOCYTES # (AUTO) 0.6 K/uL (0.8-1.0); MONOCYTES % (AUTO) 9.2 % (1.7-9.3); NEUTROPHILS # (AUTO) 2.8 K/uL (1.8-7.7); NEUTROPHILS % (AUTO) 45.6 % (42.2-75.2); PLATELET COUNT (AUTO) 152 K/uL (140-450); RED BLOOD CELL COUNT(AUTO) 4.07 MIL/uL (4.20-5.40); RED CELL DISTRIBUTION WIDTH 13.7 % (11.6-13.7); WHITE BLOOD COUNT (AUTO) 6.1 K/uL (4.8-10.8)
[2019-03-27 19:31] LABS: APPEARANCE,URINE CLEAR (CLEAR); BILIRUBIN,URINE NEGATIVE (NEGATIVE); BLOOD, URINE 2+ (NEGATIVE); COLOR,URINE YELLOW (YELLOW); LEUKOCYTE ESTERASE ,URINE TRACE (NEGATIVE); NITRITE, URINE NEGATIVE (NEGATIVE); UGLUCOSE NEGATIVE (NEGATIVE)
[2019-03-27 19:40] LABS: ANION GAP 9.5 (8-16); CARBON DIOXIDE 28.3 mmol/L (21-32); CHLORIDE 107 mmol/L (98-107); CREATININE 0.8 mg/dL (0.6-1.3); GLUCOSE 83 mg/dL (74-106); POTASSIUM 3.8 mmol/L (3.5-5.1); SODIUM SERUM 141 mmol/L (136-145); UREA NITROGEN, BLOOD 17 mg/dL (7-18)
[2019-03-27 19:45] LABS: ALBUMIN 3.7 g/dL (3.4-5.0); ASPARTATE AMINOTRANSFERASE 18 U/L (15-37); TOTAL BILIRUBIN 0.4 mg/dL (0.0-1.0)
[2019-03-27 19:46] LABS: RBC,URINE >20 (MANY) /HPF (0-5); WBC,URINE >25 (MANY) /HPF (0-5)
[2019-03-27 22:00] VITALS: BP 138/55
--- NOTE | 2019-03-27 22:00 | NUR ---
DISCHARGE PAPERS PRESENTED TO DAUGHTER. PT HAS NO SOB/DYSPNEA. NO C/O PAIN. VSS. RX OF KEFLEX GIVEN. SIDE EFFECTS EXPLAINED. INSTRUCTED TO F/U WITH PCP AND WHEN TO RETURN TO ER. BARTOLOME VERBALLIZED UNDERSTANDING OF DC INSTRUCTIONS. ALL QEUSTIONS ANSWERED.
== END 2019-03-27 22:00 | disposition home or self-care (01) ==
LOC: MED 17:06
DX: R06.00 Dyspnea, unspecified (principal); R05 Cough; R11.0 Nausea; Z98.890 Other specified postprocedural states; Z79.899 Other long term (current) drug therapy; Z86.79 Personal history of other diseases of the circulatory system
CPT/HCPCS: 36415; 71045; 80053; 81001; 83605; 83880; 84484; 85025; 87040; 87086; 99284; Q0092

== ENCOUNTER 2019-08-29 15:12 | Emergency (ER) | payer MEDICAID ==
[~2019-08-29] VITALS: Ht 137.2 cm; Wt 43.1 kg
[~2019-08-29 15:12] MED LIST changes: -MELA3TAB PO; +MELA3TAB56 PO
[2019-08-29 15:25] VITALS: BP 147/69
--- NOTE | 2019-08-29 15:30 | NUR ---
89/F BIB DAUGHTER C/O COUGH & LOWER BACK PAIN X2 DAYS. PER DAUGHTER, PT WAS JUST HOSPITALIZED AT [facility] LAST WEEK FOR PNEUMONIA, AND WAS SENT HOME WITH LEVAQUIN. PT BEGAN TO DEVELOP A COUGH AGAIN 2 DAYS AGO. DAUGHTER MENTIONS THAT PT HAS BEEN CHOKING ON FLUIDS MORE OFTEN THAN USUAL.HX: PNEUMONIA. PATIENT POSITIONED FOR COMFORT; HOB ELEVATED; BEDRAILS UP X1; BED DOWN. ER MD MADE AWARE OF PT STATUS.
[2019-08-29] MEDS ORDERED: methylPREDNISolone SS 125 MG/2 ML VIAL IVP ONE (15:45)
[2019-08-29] MEDS ORDERED: ALBUTEROL SULFATE/IPRATROPIU 3 ML SOL IH ONE (15:45)
[2019-08-29] MEDS ORDERED: PIPERACILLIN/TAZOBACTAM 3.375 GM in DEXTROSE 5% 50 ML IV ONE (15:45)
[2019-08-29] MEDS ORDERED: NACL 0.9% 500 ML IV SCH (15:45)
--- NOTE | 2019-08-29 15:55 | NUR ---
PER DAUGHTER, PT TOOK HER LAST DOSE OF LEVAQUIN 750MG PO DAILY THIS MORNING.
[2019-08-29] MEDS ORDERED: PIPERACILLIN/TAZOBACTAM 3.375 GM VIAL IV ONE (16:00)
[2019-08-29 16:33] LABS: BASOPHILS # (AUTO) 0.1 K/uL (0.00-0.22); BASOPHILS % (AUTO) 1.4 % (0.0-2.0); EOSINOPHILS % (AUTO) 0.9 % (0.0-4.0); HEMATOCRIT 39.9 % (36-48); HEMOGLOBIN 13.2 g/dL (12.0-16.0); LYMPHOCYTES # (AUTO) 1.3 K/uL (2.5-16.5); LYMPHOCYTES % (AUTO) 22.9 % (20.5-51.1); MEAN CORPUSCULAR HEMOGLOBIN 32 pg (27-31); MEAN CORPUSCULAR HGB CONC 33 g/dL (33-37); MEAN CORPUSCULAR VOLUME 96.1 fL (80-94); MONOCYTES # (AUTO) 0.6 K/uL (0.8-1.0); MONOCYTES % (AUTO) 10.1 % (1.7-9.3); NEUTROPHILS # (AUTO) 3.6 K/uL (1.8-7.7); NEUTROPHILS % (AUTO) 64.7 % (42.2-75.2); PLATELET COUNT (AUTO) 172 K/uL (140-450); RED BLOOD CELL COUNT(AUTO) 4.15 MIL/uL (4.20-5.40); RED CELL DISTRIBUTION WIDTH 13.3 % (11.6-13.7); WHITE BLOOD COUNT (AUTO) 5.6 K/uL (4.8-10.8)
[2019-08-29 17:01] LABS: ALBUMIN 3.6 g/dL (3.4-5.0); ANION GAP 11.4 (8-16); ASPARTATE AMINOTRANSFERASE 20 U/L (15-37); CARBON DIOXIDE 25.5 mmol/L (21-32); CHLORIDE 108 mmol/L (98-107); CREATININE 0.8 mg/dL (0.6-1.3); GLUCOSE 82 mg/dL (74-106); POTASSIUM 3.9 mmol/L (3.5-5.1); SODIUM SERUM 141 mmol/L (136-145); TOTAL BILIRUBIN 0.4 mg/dL (0.0-1.0); UREA NITROGEN, BLOOD 14 mg/dL (7-18)
[2019-08-29 17:05] LABS: APPEARANCE,URINE CLEAR (CLEAR); BILIRUBIN,URINE NEGATIVE (NEGATIVE); BLOOD, URINE 3+ (NEGATIVE); COLOR,URINE YELLOW (YELLOW); LEUKOCYTE ESTERASE ,URINE NEGATIVE (NEGATIVE); NITRITE, URINE NEGATIVE (NEGATIVE); PH,URINE 5.5 (5.0-9.0); UGLUCOSE NEGATIVE (NEGATIVE)
[2019-08-29 18:38] VITALS: BP 120/47
--- NOTE | 2019-08-29 18:38 | NUR ---
Patient discharged with v/s stable. Written and verbal after care instructions given and explained. Patient alert, oriented and verbalized understanding of instructions. Wheel Chair Assisted with to car. All questions addressed prior to discharge. ID band removed. Patient advised to follow up with PMD. Rx of PROMETHAZINE & PRELONE given. Patient educated on indication of medication including possible reaction and side effects. Opportunity to ask questions provided and answered.
[2019-08-29 21:47] LABS: RBC,URINE 11-20 (MOD) /HPF (0-5); WBC,URINE 0-5 /HPF (0-5)
== END 2019-08-29 18:38 | disposition home or self-care (01) ==
LOC: MED 15:12
DX: R05 Cough (principal)
CPT/HCPCS: 36415; 36600; 71045; 80053; 81001; 82803; 83605; 83880; 84484; 85025; 87040; 87086; 93005; 94640; 96365; 96375; 99284; J2543; J2930; J7060; J7620

== ENCOUNTER 2020-03-25 13:33 | Emergency (ER) | payer MEDICARE, MEDICAID ==
[~2020-03-25] VITALS: Ht 137.2 cm; Wt 41.7 kg
[2020-03-25 13:47] VITALS: BP 139/85
--- NOTE | 2020-03-25 13:55 | NUR ---
W/C ASSIST TO BED 05
--- NOTE | 2020-03-25 14:00 | NUR ---
PT BIB SON C/O RIGHT-SIDED ABDOMINAL PAIN FOR 4 DAYS. PT ALSO C/O DECREASED APPETITE. DENIES N/V/D OR FEVER. PT DENIES ANY FEVER, CP, SOB, OR COUGH AT THIS TIME; PATIENT STATES PAIN OF 10/10 AT THIS TIME; VSS; PATIENT POSITIONED FOR COMFORT; HOB ELEVATED; BEDRAILS UP X2; BED DOWN. ER MD MADE AWARE OF PT STATUS.
--- NOTE | 2020-03-25 14:07 | NUR ---
Dr. Park is evaluating the patient at bedside.
[2020-03-25 14:09] LABS: BASOPHILS # (AUTO) 0.1 K/uL (0.00-0.22); BASOPHILS % (AUTO) 0.9 % (0.0-2.0); EOSINOPHILS # (AUTO) 0.3 K/uL (0-0.4); EOSINOPHILS % (AUTO) 4.2 % (0.0-4.0); HEMATOCRIT 38.4 % (36-48); HEMOGLOBIN 12.8 g/dL (12.0-16.0); LYMPHOCYTES # (AUTO) 1.6 K/uL (2.5-16.5); LYMPHOCYTES % (AUTO) 27.1 % (20.5-51.1); MEAN CORPUSCULAR HEMOGLOBIN 31 pg (27-31); MEAN CORPUSCULAR HGB CONC 33 g/dL (33-37); MEAN CORPUSCULAR VOLUME 94.3 fL (80-94); MONOCYTES # (AUTO) 0.4 K/uL (0.8-1.0); MONOCYTES % (AUTO) 5.9 % (1.7-9.3); NEUTROPHILS # (AUTO) 3.7 K/uL (1.8-7.7); NEUTROPHILS % (AUTO) 61.9 % (42.2-75.2); PLATELET COUNT (AUTO) 139 K/uL (140-450); RED BLOOD CELL COUNT(AUTO) 4.08 MIL/uL (4.20-5.40); RED CELL DISTRIBUTION WIDTH 14.5 % (11.6-13.7); WHITE BLOOD COUNT (AUTO) 6.1 K/uL (4.8-10.8)
[2020-03-25 14:43] LABS: ALBUMIN 3.6 g/dL (3.4-5.0); ANION GAP 14.4 (8-16); ASPARTATE AMINOTRANSFERASE 18 U/L (15-37); CARBON DIOXIDE 26.7 mmol/L (21-32); CHLORIDE 105 mmol/L (98-107); CREATININE 0.9 mg/dL (0.6-1.3); GLUCOSE 112 mg/dL (74-106); LIPASE 70 U/L (73-393); POTASSIUM 5.1 mmol/L (3.5-5.1); SODIUM SERUM 141 mmol/L (136-145); TOTAL BILIRUBIN 0.7 mg/dL (0.0-1.0); UREA NITROGEN, BLOOD 16 mg/dL (7-18)
[2020-03-25] MEDS ORDERED: MORPHINE SULFATE 2 MG/ML SYR IVP ONE (14:45)
--- NOTE | 2020-03-25 15:18 | NUR ---
PT MOVED TO BED 12.
[2020-03-25 17:24] LABS: APPEARANCE,URINE CLEAR (CLEAR); BILIRUBIN,URINE NEGATIVE (NEGATIVE); BLOOD, URINE 1+ (NEGATIVE); COLOR,URINE YELLOW (YELLOW); LEUKOCYTE ESTERASE ,URINE NEGATIVE (NEGATIVE); NITRITE, URINE NEGATIVE (NEGATIVE); PH,URINE 8.5 (5.0-9.0); UGLUCOSE NEGATIVE (NEGATIVE)
[2020-03-25 17:39] LABS: FINE GRANULAR CASTS,URINE 0-10 /LPF (None Seen)
--- NOTE | 2020-03-25 18:06 | NUR ---
SPOKE TO MARIZOL DICKERSON SON OF PT. PER SON TO BE IN ER TO FIELD TAX AUDITOR PT ETA 15 MINUTES.
[2020-03-25 18:28] VITALS: BP 115/72
== END 2020-03-25 18:27 | disposition home or self-care (01) ==
LOC: MED 13:33
DX: N39.0 Urinary tract infection, site not specified (principal); G89.29 Other chronic pain; M54.9 Dorsalgia, unspecified; E11.9 Type 2 diabetes mellitus without complications; I10 Essential (primary) hypertension
CPT/HCPCS: 36415; 74176; 80053; 81001; 83690; 85025; 87086; 87186; 96374; 99284; J2270